=== PATIENT | female | born 1970 | race Caucasian/White ===

== ENCOUNTER 2016-12-26 15:06 | Emergency (ER) | payer OTHER | END 2016-12-26 16:10 | disposition home or self-care (01) | LOC: ER1 15:06 | DX: J40 Bronchitis, not specified as acute or chronic (principal); J02.9 Acute pharyngitis, unspecified; Z88.0 Allergy status to penicillin; Z88.2 Allergy status to sulfonamides | CPT/HCPCS: 99282 ==

== ENCOUNTER → 2020-10-26 | Outpatient (CLI) | payer OTHER ==
[~2020-10-26] MED LIST: NORFLEX 100 MG100 MG PO; PERCOCET 5/325 T1 EA PO; PREDNISONE 50 M50 MG PO; Voltaren Gel 1 % TOP
== END ==
LOC: RAD 08:56
DX: M25.512 Pain in left shoulder (principal)
CPT/HCPCS: 73030

== ENCOUNTER 2021-10-06 11:21 | Emergency (ER) | payer OTHER ==
[2021-10-06 12:51] LABS: HEMOGLOBIN 13.8 gm/dl (12.3-15.3); RED BLOOD COUNT 4.62 M/UL (4.00-5.10)
[2021-10-06 14:31] LABS: BUN/CREATININE RATIO 11 (0-10)
[2021-10-06] MEDS ORDERED: PROTONIX 40 MG40 M1 PO (15:37)
[2021-10-06] MEDS ORDERED: ZOFRAN 4 MG TAB4 MG PO (15:37)
[2021-10-06] MEDS ORDERED: BENTYL 20MG TAB20 MG PO (15:37)
== END 2021-10-06 15:57 | disposition home or self-care (01) ==
LOC: ER1 11:21
PROVIDERS: Physician Assistant Medical
DX: R10.9 Unspecified abdominal pain (principal); R19.7 Diarrhea, unspecified; R11.0 Nausea; Z88.0 Allergy status to penicillin; Z88.2 Allergy status to sulfonamides; Z90.710 Acquired absence of both cervix and uterus; Z90.89 Acquired absence of other organs
CPT/HCPCS: 80053; 81001; 83690; 85025; 96374; 99284; J2405; Q9967